=== PATIENT | female | born 1985 | race Caucasian/White ===

== ENCOUNTER 2017-10-03 16:21 | Emergency (ER) | payer BC ==
[~2017-10-03] VITALS: Ht 162.6 cm; Wt 104.5 kg
[~2017-10-03 16:21] MED LIST: ORTHO TRI-CYCL1 EACH PO; TYLENOL WITH C1 EACH PO
[2017-10-03 17:29] LABS: BASOPHIL (%) 0.2 % (0-1); EOSINOPHIL (%) 0.1 % (0-5); HEMATOCRIT 42.2 % (36.0-46.0); HEMOGLOBIN 14.4 G/DL (11.9-15.5); IMMATURE GRANULOCYTE (%) 0.2 % (0.0-0.7); LYMPHOCYTE (%) 7.5 % (15-42); LYMPHOCYTE COUNT 0.6 K/uL (1.0-2.8); MCH 28.5 PG (29.0-34.0); MCHC 34.1 G/DL (30.0-36.0); MCV 83.6 FL (83-99); MONOCYTE (%) 5.6 % (3-12); MONOCYTE COUNT 0.5 K/uL (0-0.8); NEUTROPHIL (%) 86.4 % (45-76); NEUTROPHIL COUNT 7.1 K/uL (1.8-6.4); PLATELET COUNT 182 K/uL (156-360); RBC DIS.WIDTH-CV 12.5 % (11.8-14.6); RBC DIS.WIDTH-SD 38.3 % (39-53); RED BLOOD COUNT 5.05 M/uL (3.80-5.20); WHITE BLOOD COUNT 8.2 K/uL (4.1-10.2)
[2017-10-03 17:42] LABS: ALBUMIN 3.9 g/dL (3.2-4.8)
[2017-10-03 17:43] LABS: CHLORIDE 104 mEq/L (99-109); POTASSIUM 3.6 mEq/L (3.7-5.4); SODIUM 138 mEq/L (136-147)
[2017-10-03 17:45] LABS: GLUCOSE 91 mg/dL (70-99)
[2017-10-03 17:47] LABS: TOTAL BILIRUBIN 0.6 mg/dL (0.0-1.0)
[2017-10-03 17:48] LABS: ALKALINE PHOSPHATASE 73 IU/L (3-129)
[2017-10-03 17:49] LABS: CREATININE 0.7 mg/dL (0.6-1.3); GFR ESTIMATE (CALCULATED) > 59 mL/min/
[2017-10-03 17:50] LABS: AST (GOT) 25 IU/L (2-34); UREA NITROGEN (BUN) 10 mg/dL (9-23)
[2017-10-03 17:51] LABS: ALT (GPT) 20 IU/L (3-49)
[2017-10-03 17:52] LABS: LIPASE 22 U/L (1.0-51.0)
[2017-10-03 20:40] LABS: APPEARANCE CLEAR ((CLEAR)); BILIRUBIN NEGATIVE; BLOOD NEGATIVE; COLOR YELLOW ((YELLOW)); GLUCOSE (STRIP) NEGATIVE; KETONES 20; LEUKOCYTES NEGATIVE; NITRITE NEGATIVE; PROTEIN (STRIP) NEGATIVE; SPECIFIC GRAVITY 1.021 (1.000-1.030); UCUL ADDED? NO
[2017-10-03] MEDS ORDERED: ZOFRAN ODT4 MG PO (21:40)
[2017-10-03 22:00] VITALS: BP 92/76
== END 2017-10-03 22:14 | disposition home or self-care (01) ==
LOC: EME 16:21
PROVIDERS: Emergency Medicine
DX: K52.9 Noninfective gastroenteritis and colitis, unspecified (principal); J45.909 Unspecified asthma, uncomplicated; Z88.6 Allergy status to analgesic agent; Z88.5 Allergy status to narcotic agent
CPT/HCPCS: 80053; 81003; 81025; 83605; 83690; 85025; 87502; 93005; 99281; 99284; J0780; J1200; J2060; J2405; J7120